=== PATIENT | female | born 1995 | race African-American/Black ===

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

== ENCOUNTER → 2018-03-23 | Outpatient (CLI) | payer MEDICAID ==
[2018-03-23 11:53] LABS: BACTERIA (WET MOUNT) 4+ BACTERIA SEEN; EPITHELIALS (WET MOUNT) 4+ EPITHELIALS SEEN; T.VAGINALIS (WET MOUNT) NO TRICHOMONAS SEEN; WBCS (WET MOUNT) 1+ WBCS SEEN; YEAST (WET MOUNT) NO YEAST SEEN
[2018-03-23 14:40] LABS: CHLAM PCR NOT DETECTED (NOT DETECT)
[2018-03-23 14:49] LABS: GON PCR NOT DETECTED (NOT DETECT)
== END ==
LOC: LAB 11:33
PROVIDERS: ATTEND Nurse Practitioner Acute Care
DX: N76.0 Acute vaginitis (principal)
CPT/HCPCS: 87210; 87491; 87591

== ENCOUNTER 2018-11-02 12:25 | Emergency (ER) | payer SELFPAY ==
[2018-11-02 12:41] VITALS: BP 124/73
[2018-11-02] MEDS ORDERED: CETIRIZINE 10 MG TABLET PO ONE (14:24)
[2018-11-02] MEDS ORDERED: PSEUDOEPHEDRINE HCL 30 MG TABLET PO ONE (14:24)
--- NOTE | 2018-11-02 14:26 | ER Document Report ---
HPI - HPI Patient complains to provider of: ear pain Time Seen by Provider: 11/02/18 14:18 Onset: Other - 5 d Onset/Duration: Persistent Quality of pain: Achy Pain Level: 1 Context: Patient presents complaining of right ear pain for the past 5 days. Patient felt like she got water in her ear after a shower and that has caused persistent pain. Patient denies any drainage from the ear. No fever. No sore throat symptoms. Associated Symptoms: Earache. denies: Nonproductive cough, Fever, Nausea, Sore throat Exacerbated by: Denies Relieved by: Denies Similar symptoms previously: No Recently seen / treated by doctor: No - ROS ROS below otherwise negative: Yes Systems Reviewed and Negative: Yes All other systems reviewed and negative - CONSTITUTIONAL Constitutional: DENIES: Fever, Chills - EENT EENT: REPORTS: Ear Pain - right ear. DENIES: Sore Throat, Nasal Drainage-Clear - RESPIRATORY Respiratory: DENIES: Coughing - GASTROINTESTINAL Gastrointestinal: DENIES: Nausea, Patient vomiting - REPRODUCTIVE Reproductive: DENIES: : - DERM Skin Color: Normal Skin Problems: None Past Medical History - General Information source: Patient - Social History Smoking Status: Never Smoker Chew tobacco use (# tins/day): No Frequency of alcohol use: None Drug Abuse: None Occupation: none Family History: Reviewed & Not Pertinent Patient has suicidal ideation: No Patient has homicidal ideation: No - Medical History Medical History: Negative Renal/ Medical History: Denies: Hx Peritoneal Dialysis Past Surgical History: Reports: Hx Oral Surgery - wisdom - Immunizations Immunizations up to date: Yes Vertical Provider Document - CONSTITUTIONAL Agree With Documented VS: Yes Exam Limitations: No Limitations General Appearance: WD/WN, No Apparent Distress - INFECTION CONTROL TRAVEL OUTSIDE OF THE [place] IN LAST 30 DAYS: No - HEENT HEENT: Atraumatic, Normocephalic. negative: Pharyngeal Exudate, Pharyngeal Tenderness, Pharyngeal Erythema, Tympanic Membrane Red, Tympanic Membrane Bulging Notes: Bilateral serous effusion, no mastoid tenderness or swelling, no fluid or swelling within the external auditory canal bilaterally - NECK Neck: Normal Inspection, Supple - RESPIRATORY Respiratory: Breath Sounds Normal, No Respiratory Distress - CARDIOVASCULAR Cardiovascular: Regular Rate, Regular Rhythm - MUSCULOSKELETAL/EXTREMETIES Musculoskeletal/Extremeties: MAEW - NEURO Level of Consciousness: Awake, Alert, Appropriate Motor/Sensory: No Motor Deficit - DERM Integumentary: Warm, Dry, No Rash Course - Vital Signs Vital signs: Temp Pulse Resp BP Pulse Ox 98.7 F 84 16 124/73 97 11/02/18 12:36 11/02/18 12:36 11/02/18 12:36 11/02/18 12:36 11/02/18 12:36 Discharge - Discharge Clinical Impression: Serous otitis media Qualifiers: Chronicity: unspecified Laterality: bilateral Qualified Code(s): H65.93 - Unspecified nonsuppurative otitis media, bilateral Condition: Stable Disposition: HOME, SELF-CARE Instructions: Serous Otitis Media ([facility]) Additional Instructions: Return immediately for any new or worsening symptoms Followup with your primary care provider, call tomorrow to make a followup appointment Take Sudafed [id number] to help with your symptoms Prescriptions: Cetirizine HCl [Zyrtec 10 mg Tablet] 1 tab PO DAILY #15 tablet Referrals: ALEX LANGFORD NP [Primary Care Provider] - Follow up as needed
== END 2018-11-02 14:46 | disposition home or self-care (01) ==
LOC: ER 12:25
DX: H65.93 Unspecified nonsuppurative otitis media, bilateral (principal); H92.01 Otalgia, right ear
CPT/HCPCS: 99282